=== PATIENT | male | born 1975 | race Caucasian/White ===

== ENCOUNTER 2017-05-03 11:48 | Emergency (ER) | payer OTHER ==
[~2017-05-03] VITALS: Wt 97.8 kg
--- NOTE | 2017-05-03 12:28 | ERD ---
ER Documentation Chief Complaint Chief Complaint left lateral lower leg chronic wound [id number], wants it to be checked. HPI This is a 41-year-old male that presents to the ER with the chronic wound to his left lateral leg. He has had this for the last 2 months. Patient states that he take antibiotics in February and that it got better however is gotten worse over the last month. Patient states that area is not painful he does not have any fevers or chills. He has not gotten any follow-up care for the wound. 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 ROS 12 point review of systems was done, all negative except per HPI. Medications Home Meds No Active Prescriptions or Reported Meds Allergies Allergies: Coded Allergies: No Known Drug Allergies (Verified Allergy, Unknown, 05/11/14) PMhx/Soc History of Surgery: No Anesthesia Reaction: No Hx Neurological Disorder: No Hx Respiratory Disorders: No Hx Cardiac Disorders: No Hx Psychiatric Problems: No Hx Miscellaneous Medical Probl: Yes (Anemia; Left Leg Cellulitis) Hx Alcohol Use: Yes (Social) Hx Substance Use: Yes (Amphetamine) Hx Tobacco Use: Yes Smoking Status: Current some day smoker Physical Exam Vitals Vital Signs Date Time Temp Pulse Resp B/P Pulse Ox O2 Delivery O2 Flow Rate FiO2 05/03/17 11:53 97.7 73 12 137/62 99 Physical Exam GENERAL: The patient is well developed and appropriate for usual state of health , in no apparent distress. HEENT: Atraumatic CHEST: Clear to auscultation bilaterally. There are no rales, wheezes or rhonchi. HEART: Regular rate and rhythm. No murmurs, clicks, rubs or gallops. EXTREMITIES: Large 6" x 5" open wound with large area of black eschar in the middle. There is no surrounding erythema, and it is not warm to the touch. NEURO: Alert and oriented. SKIN: There is no apparent rash or petechia. The skin is warm and dry. Procedures/MDM This is a 41-year-old male here with a chronic wound to his left lateral leg. Patient is afebrile and well-appearing. At this time patient does need debridement, this patient was examined by myself and by my supervising physician and he is stable for outpatient follow up. [facility]. Patient needs to follow up with the [facility] TODAY. He should return to ER sooner if symptoms worsen. My medical decision making was discussed with the patient, he understands and agrees with plan. Departure Diagnosis: Primary Impression: Chronic wound of extremity Condition: Stable Patient Instructions: Wound Care Referrals: [facility] Additional Instructions: Call your primary care doctor TOMORROW for an appointment during the next 1-2 days.See the doctor sooner or return here if your condition worsens before your appointment time. CORDELIA COUCH May 03, 2017 12:28
== END 2017-05-03 12:27 | disposition home or self-care (01) ==
LOC: FTE 11:48
DX: L97.929 Non-pressure chronic ulcer of unspecified part of left lower leg with unspecified severity (principal); F17.210 Nicotine dependence, cigarettes, uncomplicated
CPT/HCPCS: 99282

== ENCOUNTER 2018-07-17 08:50 | Emergency (ER) | payer OTHER ==
[~2018-07-17] VITALS: Wt 91.1 kg
[2018-07-17] MEDS ORDERED: PIPER-TAZO 3.375 GM IV (PMX) 100 ML IVPB STA (09:05)
[2018-07-17] MEDS ORDERED: VANCOMYCIN 1 GM (PMX) 250 ML IVPB STA (09:05)
[2018-07-17] MEDS ORDERED: ACETAMINOPHEN 325 MG TAB PO STA (09:05)
[2018-07-17] MEDS ORDERED: SODIUM CHLORIDE 0.9% 1L BAG IV* STA (09:05)
[2018-07-17] MEDS ORDERED: LIDOCAINE 1% (MPF) 5 ML VIAL SC ONE (10:00)
--- NOTE | 2018-07-17 10:15 | ERD ---
ER Documentation Chief Complaint Chief Complaint FEVER, ABCESS ON RIGHT UPPER ARM HPI 43-year-old male presents to the emergency department complaining of fever. Patient has a history of IV drug abuse. Over the last few months, he tells me he has been having fevers on and off. He has been seen in outside emergency departments and told "you have no infection." However, he continues he use IV drugs. He last skin popped on his right upper extremity and now has developed a red, painful abscess on his right arm. His fevers continued and he came to the emergency department for evaluation. He reports no shortness of breath or chest pain and no other significant symptoms. ROS All systems reviewed and are negative except as per history of present illness. Medications Home Meds No Active Prescriptions or Reported Meds Allergies Allergies: Coded Allergies: No Known Drug Allergies (Verified Allergy, Unknown, 05/11/14) PMhx/Soc History of Surgery: No Anesthesia Reaction: No Hx Neurological Disorder: No Hx Respiratory Disorders: No Hx Cardiac Disorders: No Hx Psychiatric Problems: No Hx Miscellaneous Medical Probl: Yes (Anemia; Left Leg Cellulitis) Hx Alcohol Use: Yes (Social) Hx Substance Use: Yes (Amphetamine) Hx Tobacco Use: Yes Smoking Status: Current every day smoker FmHx Noncontributory for chief complaint Physical Exam Vitals Vital Signs Date Temp Pulse Resp B/P (MAP) Pulse Ox O2 O2 Flow FiO2 Time Delivery Rate 07/17/18 101.6 09:18 07/17/18 108 18 134/64 98 Room Air 09:10 (87) 07/17/18 101.4 106 17 116/59 98 08:53 (78) Physical Exam GENERAL: Ill-appearing male HEENT: Pupils equal, round, and reactive to light. EOMI. There is no scleral icterus. NECK: C-spine is soft and supple, there is no meningismus. There is no cervical lymphadenopathy. No bruit LUNGS: Clear to auscultation bilaterally. There are no rales, wheezes or rhonchi. HEART: Regular rate and rhythm, no murmurs, clicks, rubs or gallops. ABDOMEN: Soft, non-tender, non-distended. There are bowel sounds in all four quadrants. No rebound or guarding. EXTREMITIES: 2+ edema in all extremities. There is a significant abscess with redness and swelling in the right upper extremity. No crepitus noted. No pain with passive range of motion or pain out of proportion to exam NEURO: The patient moves all four extremities with 5/5 strength. Cranial nerves II - XII are intact. Normal gait. Alert and oriented SKIN: Patient has an abscess in the right upper extremity and evidence and stigmata of drug abuse in all 4 extremity's. He has chronic wounds on the left lower extremity which appear to have healing granulation tissue. HEME/LYMPHATIC: There is no evidence of excessive bruising or lymphedema. PSYCHIATRIC: The patient does not appear anxious or depressed. Result Diagram: 07/17/1891307/17/18913 Results 24 hrs Laboratory Tests Test 07/17/18 09:08 07/17/18 09:10 07/17/18 09:14 Bedside Glucose 155 mg/dL POC Venous Lactate 0.8 mmol/L White Blood Count 12.4 10^3/ul Red Blood Count 3.95 10^6/ul Hemoglobin 9.5 g/dl Hematocrit 29.7 % Mean Corpuscular Volume 75.2 fl Mean Corpuscular Hemoglobin 24.1 pg Mean Corpuscular Hemoglobin Concent 32.0 g/dl Red Cell Distribution Width 17.2 % Platelet Count 290 10^3/UL Mean Platelet Volume 9.5 fl Immature Granulocytes % 0.600 % Neutrophils % 88.7 % Lymphocytes % 6.8 % Monocytes % 3.8 % Eosinophils % 0.0 % Basophils % 0.1 % Nucleated Red Blood Cells % 0.0 /100WBC Immature Granulocytes # 0.080 10^3/ul Neutrophils # 11.0 10^3/ul Lymphocytes # 0.8 10^3/ul Monocytes # 0.5 10^3/ul Eosinophils # 0.0 10^3/ul Basophils # 0.0 10^3/ul Nucleated Red Blood Cells # 0.0 10^3/ul Prothrombin Time 15.5 Sec Prothrombin Time Ratio 1.2 INR International Normalized Ratio 1.22 Activated Partial Thromboplast Time 32.8 Sec Sodium Level 130 mmol/L Potassium Level 3.5 mmol/L Chloride Level 94 mmol/L Carbon Dioxide Level 29 mmol/L Anion Gap 7 Blood Urea Nitrogen 12 mg/dl Creatinine 0.76 mg/dl Est Glomerular Filtrat Rate mL/min > 60 mL/min Glucose Level 148 mg/dl Calcium Level 8.1 mg/dl Total Bilirubin 0.1 mg/dl Direct Bilirubin 0.00 mg/dl Indirect Bilirubin 0.1 mg/dl Aspartate Amino Transf (AST/SGOT) 40 IU/L Alanine Aminotransferase (ALT/SGPT) 17 IU/L Alkaline Phosphatase 153 IU/L Troponin I < 0.012 ng/ml Total Protein 8.5 g/dl Albumin 3.3 g/dl Globulin 5.20 g/dl Albumin/Globulin Ratio 0.63 Current Medications Medications Dose Sig/Grace Start Time Status Last (Trade) Ordered Route PRN Stop Time Admin Dose Reason Admin Sodium 2,730 ml BOLUS OVER 2 07/17/18 DC Chloride HOURS STAT 09:05 07/17/18 (NS) IV* 09:07 650 mg ONCE STAT 07/17/18 DC 07/17/18 Acetaminophen PO 09:05 07/17/18 09:18 (Tylenol 09:07 Tab) Vancomycin 250 ml @ ONCE STAT 07/17/18 HCl 125 mls/hr IVPB 09:05 07/17/18 11:04 Piperacillin 100 ml @ ONCE STAT 07/17/18 DC Sod/ 200 mls/hr IVPB 09:05 07/17/18 Tazobactam 09:34 Sod Lidocaine 5 ml ONCE ONCE 07/17/18 DC (Xylocaine SC 10:00 07/17/18 1% (Mpf)) 10:01 Procedures/MDM Patient was taken to a room, seen and evaluated. Comfort measures were initiated. Diagnostic tests were ordered and reviewed. 3 LEAD RHYTHM STRIP: Normal sinus rhythm without ectopy EK lead EKG reviewed by myself: Normal Sinus Rhythm Left axis deviation No ST elevation, depression, or T wave inversion Impression: Nonspecific EKG without obvious ischemia RADIOLOGY: Reviewed with the radiologist CONSULTATION: Hospitalist was notified for admission REEVALUATION: 1010: Diagnostic tests were appreciated. Arrangements made for admission. No IV access was available and the patient required a PICC line which was ordered. MEDICAL DECISION MAKIN-year-old male presents the emergency department with a fever related IV drug abuse. Although the source of his infection is likely his abscess, I have to be concerned about endocarditis. He is ill-appearing and will require admission to the hospital for IV antibiotics, monitoring of his upper arm with consideration of surgical management for source control. Sepsis Documentation: SEVERE SEPSIS CRITERIA: Infectious source: Abscess, rule out endocarditis Patient has a lactate less than 2 and no evidence of hematin having instability with no evidence of severe sepsis or septic shock Departure Diagnosis: Primary Impression: Sepsis Additional Impressions: Abscess of right upper extremity IV drug abuse Condition: CRUZ Shetty Jul 17, 2018 10:15
[2018-07-17 11:10] VITALS: PULSE 92
--- NOTE | 2018-07-17 11:17 | HP ---
Date/Time of Note Date/Time of Note DATE: 07/17/18 TIME: 11:17 Assessment/Plan VTE Prophylaxis Pharmacological prophylaxis: LMWH Assessment/Plan Hospital Course 43-year-old male with comorbidities including prediabetes, drug abuse, and nicotine use who came to the emergency room with right upper extremity edema with underlying fevers and drainage from needle tracks on the right upper extremity, who was found to have evidence of sepsis with underlying leukocytosis, febrile illness, tachycardia and will be admitted to inpatient setting for further treatment and evaluation. 1. Sepsis with leukocytosis, tachycardia, and febrile illness present on admission, secondary to underlying right upper extremity cellulitis with possible underlying abscess. -Continue antimicrobials. -Continue IV fluids -Infectious diseases consult for antibiotic management. -Send rodríguez cultures. 2. Right upper extremity cellulitis with possible underlying abscess. -Obtain right upper extremity CT scan. -Surgical consult if there is underlying abscess. 3. Anemia. -Microcytic and hypochromic -Etiology unclear. -Monitor H&H closely. -Obtain iron panel. 4. Hyponatremia. -Etiology unclear. -Possibly secondary to polydipsia. -Obtain TSH, urine and serum osmolality, and serum cortisol level. 5. IV drug abuse. -Cessation advised. -Social work consult. 6. Nicotine use. -Cessation advised. -Nicotine patch. Plan: The patient will be admitted to inpatient medical surgical floor. The patient will be started on a regular diet. The patient will be started on DVT prophylaxis. The patient will remain a full code. Activities will be as tolerated. The rest of the patient's management will be based on the clinical course, inputs from consultants, and the results of diagnostic studies. The patient was seen in collaboration with Dr. Elizabeth. Result Diagram: 07/17/1814 07/17/1814 Results 24hrs Laboratory Tests Test 07/17/18 09:08 07/17/18 09:10 07/17/18 09:14 07/17/18 10:56 Bedside Glucose 155 POC Venous Lactate 0.8 White Blood Count 12.4 #H Red Blood Count 3.95 L Hemoglobin 9.5 #L Hematocrit 29.7 L Mean Corpuscular Volume 75.2 L Mean Corpuscular 24.1 #L Hemoglobin Mean Corpuscular 32.0 Hemoglobin Concent Red Cell Distribution 17.2 H Width Platelet Count 290 Mean Platelet Volume 9.5 # Immature Granulocytes % 0.600 H Neutrophils % 88.7 H Lymphocytes % 6.8 L Monocytes % 3.8 Eosinophils % 0.0 Basophils % 0.1 Nucleated Red Blood 0.0 Cells % Immature Granulocytes # 0.080 H Neutrophils # 11.0 H Lymphocytes # 0.8 Monocytes # 0.5 Eosinophils # 0.0 Basophils # 0.0 Nucleated Red Blood 0.0 Cells # Prothrombin Time 15.5 H Prothrombin Time Ratio 1.2 INR International 1.22 Normalized Ratio Activated 32.8 Partial Thromboplast Time Sodium Level 130 L Potassium Level 3.5 Chloride Level 94 L Carbon Dioxide Level 29 Anion Gap 7 Blood Urea Nitrogen 12 Creatinine 0.76 Est Glomerular Filtrat > 60 Rate mL/min Glucose Level 148 Calcium Level 8.1 L Total Bilirubin 0.1 L Direct Bilirubin 0.00 Indirect Bilirubin 0.1 Aspartate Amino 40 Transf (AST/SGOT) Alanine 17 Aminotransferase (ALT/SG PT) Alkaline Phosphatase 153 H Troponin I < 0.012 Total Protein 8.5 H Albumin 3.3 Globulin 5.20 H Albumin/Globulin Ratio 0.63 Urine Color YELLOW Urine Clarity CLEAR Urine pH 7.0 Urine Specific [place] 1.003 Urine Ketones NEGATIVE Urine Nitrite NEGATIVE Urine Bilirubin NEGATIVE Urine Urobilinogen NEGATIVE Urine Leukocyte Esterase NEGATIVE Urine Hemoglobin NEGATIVE Urine Glucose NEGATIVE Urine Total Protein NEGATIVE HPI/ROS Admit Date/Time Admit Date/Time Hx of Present Illness Reason for admission: Right upper extremity edema and redness secondary to IV drug use, fevers. Consultants. 1. Infectious Diseases. This is a 43-year-old male with a past medical history of IV drug abuse, left lower extremity cellulitis secondary to IV drug abuse, prediabetes, and nicotine use. The patient came to the emergency room with chief complaint of right upper extremity edema and fevers. The patient apparently went to an outside emergency room and he was told that he has "no infection." The patient is a poor historian. The patient also had right drainage from 1 of the skin breakdown on the right upper extremity. In the emergency room, the patient was noticed to have leukocytosis. The patient had a fever as high as 101.6 F. The patient was treated with IV vancomycin and Zosyn. ROS Constitutional: chills, febrile Eyes: no complaints ENT: no complaints Respiratory: no complaints Cardiovascular: no complaints Gastrointestinal: no complaints Genitourinary: no complaints Musculoskeletal: bone/joint pain Skin: skin lesions Neurologic: no complaints Endocrine: no complaints Lymphatic: lymphadema Psychological: no complaints Immunologic: no complaints PMH/Family/Social Past Medical History 1. IV drug abuse. 2. LLE cellulitis. 3. Pre-diabetes. Coded Allergies: No Known Drug Allergies (Verified Allergy, Unknown, 07/17/18) Past Surgical History Left forearm surgery. Social History Alcohol Use: none Smoking Status: Current every day smoker Drug Use: heroin Exam/Review of Systems Vital Signs Vitals Vital Signs Date Temp Pulse Resp B/P (MAP) Pulse Ox O2 O2 Flow FiO2 Time Delivery Rate 07/17/18 92 18 136/65 98 Room Air 11:10 (88) 07/17/18 101.6 09:18 Exam Exam General: Adequately build 43 year-old male lying in bed in no apparent distress. HEENT: Normocephalic, atraumatic. Eyes: Anicteric sclerae, conjunctivae clear. ENT: Nasal septum midline, oral mucosa moist. Neck supple, no JVD noticed. Respiratory: Bilaterally clear breath sounds. No use of accessory muscles of respiration. No adventitious breath sounds. Cardiovascular: S1, S2 heard. Regular rate and rhythm. Abdomen: Soft, nontender, and nondistended. Bowel sounds positive in all 4 quadrants. Genitourinary: Deferred. Extremities: Right upper extremity edema with redness along with multiple needle tracks with an open wound on the right upper extremity laterally. Left upper extremity multiple needle tracks. Left lower extremity dressing on the chan. Bilateral lower extremity edema. Neurologic: Cranial nerves II through XII grossly intact. The patient is awake, alert, and oriented. Additional Comments CXR IMPRESSION: Unremarkable portable chest. DEREK NAVARRO NP Jul 17, 2018 11:17
[2018-07-17 12:00] VITALS: BP 125/64; RESP 18
[2018-07-17] MEDS ORDERED: ONDANSETRON 4 MG INJ IV PRN (12:30)
[2018-07-17] MEDS ORDERED: HYDROCODONE/APAP (5/325) TAB PO PRN (12:30)
[2018-07-17] MEDS ORDERED: NICOTINE (14 MG/24 HR) PATCH TRANSDERM SCH (12:30)
[2018-07-17] MEDS ORDERED: VANCOMYCIN IV PER PHARMACY XX SCH (12:30)
[2018-07-17] MEDS ORDERED: ACETAMINOPHEN 325 MG TAB PO PRN (12:30)
[2018-07-17] MEDS ORDERED: NACL 0.9% 3 ML SYG IV SCH (12:30)
[2018-07-17] MEDS ORDERED: morphine 2 MG INJ IV PRN (12:30)
--- NOTE | 2018-07-17 13:16 | DS ---
Date/Time of Note Date/Time of Note DATE: 07/17/18 TIME: 13:16 Discharge Summary Admission/Discharge Info Admit Date/Time Discharge Date/Time The patient eloped. Discharge Diagnosis 1. Sepsis with leukocytosis, tachycardia, and febrile illness present on admiss ion, secondary to underlying right upper extremity cellulitis with possible underlying abscess. 2. Right upper extremity cellulitis with possible underlying abscess. 3. Anemia. Microcytic and hypochromic. 4. Pre-diabetes. A1C 6.2. 5. Hyponatremia. 6. IV drug abuse. 7. Nicotine use. Patient Condition: Guarded Hx of Present Illness Reason for admission: Right upper extremity edema and redness secondary to IV drug use, fevers. Consultants 1. Infectious Diseases. This is a 43-year-old male with a past medical history of IV drug abuse, left lower extremity cellulitis secondary to IV drug abuse, prediabetes, and nicotine use. The patient came to the emergency room with chief complaint of right upper extremity edema and fevers. The patient apparently went to an outside emergency room and he was told that he has "no infection." The patient is a poor historian. The patient also had right drainage from 1 of the skin breakdown on the right upper extremity. In the emergency room, the patient was noticed to have leukocytosis. The patient had a fever as high as 101.6 F. The patient wa s treated with IV vancomycin and Zosyn. Hospital Course The patient was started on antibiotics including coverage for MRSA and anaerobes. An infectious disease consult was obtained. The patient did not have any evidence of septic shock. Bustamante cultures were sent. The patient had evidence of right upper extremity cellulitis and possible underlying abscess. A CT scan of the right upper extremity was ordered for evaluation for any underlying abscess. The patient was noticed to have microcytic hypochromic anemia. The patient's iron panel showed minimal iron deficiency. The patient was also noticed to have hyponatremia. Workup for hyponatremia was in progress. The patient is a IV drug abuser. The patient uses IV heroin. The patient's urine drug screen was also positive for amphetamines. The patient is also a nicotine user. A nicotine patch was ordered for this patient. The patient was waiting in the emergency room awaiting to be moved to inpatient room. Meanwhile, the ER staff could not find the patient and the patient was deemed eloped. No discharge planning could be done and no follow-up plan could be done since the patient eloped from the hospital. The patient was seen in collaboration with Dr. Elizabeth. Home Meds No Active Prescriptions or Reported Meds Primary Care Provider Care Physician No Primary Time spent on discharge: < 30 minutes Pending Labs Laboratory Tests Test 07/17/18 09:08 07/17/18 09:10 07/17/18 09:14 07/17/18 10:56 Bedside 155 Glucose mg/dL (70-220) POC Venous 0.8 Lactate mmol/L (0.5-2. 0) White Blood 12.4 Count 10^3/ul (4.8-1 0.8) Red Blood 3.95 Count 10^6/ul (4.70- 6.10) Hemoglobin 9.5 g/dl (14.0-18. 0) Hematocrit 29.7 % (42.0-52.0) Mean 75.2 Corpuscular fl (82.0-101.0 Volume ) Mean 24.1 Corpuscular pg (29.0-33.0) Hemoglobin Mean 32.0 Corpuscular g/dl (32.0-37. Hemoglobin Conc 0) ent Red Cell 17.2 Distribution % (11.5-14.5) Width Platelet Count 290 10^3/UL (140-4 15) Mean Platelet 9.5 Volume fl (7.4-10.4) Immature 0.600 Granulocytes % % (0.001-0.429 ) Neutrophils % 88.7 % (39.0-77.0) Lymphocytes % 6.8 % (15.0-51.0) Monocytes % 3.8 % (0.0-11.0) Eosinophils % 0.0 % (0.0-7.0) Basophils % 0.1 % (0.0-2.0) Nucleated Red 0.0 Blood Cells % /100WBC (0.0-0 .0) Immature 0.080 Granulocytes # 10^3/ul (0.0-0 .031) Neutrophils # 11.0 10^3/ul (1.6-7 .5) Lymphocytes # 0.8 10^3/ul (0.8-2 .9) Monocytes # 0.5 10^3/ul (0.3-0 .9) Eosinophils # 0.0 10^3/ul (0.0-0 .5) Basophils # 0.0 10^3/ul (0.0-0 .1) Nucleated Red 0.0 Blood Cells # 10^3/ul (0.0-0 .0) Prothrombin 15.5 Time Sec (11.9-14.9 ) Prothrombin 1.2 Time Ratio INR 1.22 International Normalized Rati o Activated 32.8 Partial Thrombo Sec (23.0-35.0 plast Time ) Sodium Level 130 mmol/L (135-14 4) Potassium 3.5 Level mmol/L (3.5-5. 1) Chloride Level 94 mmol/L (97-110 ) Carbon Dioxide 29 Level mmol/L (21-31) Anion Gap 7 (5-13) Blood Urea 12 Nitrogen mg/dl (7-20) Creatinine 0.76 mg/dl (0.61-1. 24) Est Glomerular > 60 Filtrat mL/min (>60) Rate mL/min Glucose Level 148 mg/dl (70-220) Calcium Level 8.1 mg/dl (8.4-10. 2) Iron Level 19 ug/dl (35-150) Total Iron 253 Binding ug/dl (241-421 Capacity ) Percent Iron 8 % Saturation SAT (22-52) Ferritin Pending Total 0.1 Bilirubin mg/dl (0.2-1.3 ) Direct 0.00 Bilirubin mg/dl (0.00-0. 20) Indirect 0.1 Bilirubin mg/dl (0-1.1) Aspartate Amino 40 Transf (AST/SGO IU/L (15-46) T) Alanine 17 Aminotransferas IU/L (13-69) e (ALT/SGPT) Alkaline 153 Phosphatase IU/L (42-121) Troponin I < 0.012 ng/ml (0.000-0 .120) C-Reactive Pending Protein Total Protein 8.5 g/dl (6.1-8.1) Albumin 3.3 g/dl (3.3-4.9) Globulin 5.20 g/dl (1.3-3.2) Albumin/Globuli 0.63 n Ratio Hepatitis B Pending Surface Antigen Hepatitis B Pending Core Total Antibody Hepatitis C Pending Antibody HIV (1&2) Pending Antibody Urine Color YELLOW (YELLOW ) Urine Clarity CLEAR (CLEAR) Urine pH 7.0 (5.0-9.0) Urine Specific 1.003 (1.003-1 [place] .030) Urine Ketones NEGATIVE mg/dL (NEGATIV E) Urine Nitrite NEGATIVE mg/dL (NEGATIV E) Urine NEGATIVE Bilirubin mg/dL (NEGATIV E) Urine NEGATIVE Urobilinogen mg/dL (NEGATIV E) Urine Leukocyte NEGATIVE Jenifer/u Esterase l Urine NEGATIVE Hemoglobin mg/dL (NEGATIV E) Urine Glucose NEGATIVE mg/dL (NEGATIV E) Urine Total NEGATIVE Protein mg/dl (NEGATIV E) DEREK NAVARRO NP Jul 17, 2018 13:16
[2018-07-17] MEDS ORDERED: PIPER-TAZO 3.375 GM IV (PMX) 100 ML IVPB SCH (18:00)
[2018-07-18] MEDS ORDERED: ENOXAPARIN 40 MG/0.4 ML SYG SC SCH (09:00)
== END 2018-07-17 13:23 | disposition left against medical advice (07) ==
LOC: E/R 08:50 → CANRESERV 10:35 → E/R 13:23 → CANBEDREQ 19:45
DX: A41.9 Sepsis, unspecified organism (principal); L02.413 Cutaneous abscess of right upper limb; F19.10 Other psychoactive substance abuse, uncomplicated; F17.210 Nicotine dependence, cigarettes, uncomplicated; M79.601 Pain in right arm
CPT/HCPCS: 71045; 80053; 80307; 81003; 82728; 82962; 83036; 83540; 83605; 83930; 83935; 84300; 84439; 84443; 84484; 85025; 85610; 85651; 85730; 86140; 86703; 86704; 86709; 86803; 86850; 86900; 86901; 87040; 87086; 87340; 93005; J2543; J3370; J7030; Z7502; Z7610